=== PATIENT | male | born 1980 | race African-American/Black ===

== ENCOUNTER 2017-02-16 11:36 | Emergency (ER) | payer SELFPAY ==
[~2017-02-16] VITALS: Wt 106.6 kg
[~2017-02-16 11:36] MED LIST: ANAPROX DS550 MG PO; CLEOCIN150 MG PO; KEFLEX500 M1 PO; PAIN RELIEVER650 MG PO; ULTRAM50 MG PO
[2017-02-16] MEDS ORDERED: ANAPROX DS550 MG PO (12:56)
[2017-02-16] MEDS ORDERED: ZANAFLEX4 M1 PO (12:56)
== END 2017-02-16 13:06 | disposition home or self-care (01) ==
LOC: ED 11:36
DX: M94.0 Chondrocostal junction syndrome [Tietze] (principal); R07.89 Other chest pain; F17.200 Nicotine dependence, unspecified, uncomplicated; Z88.6 Allergy status to analgesic agent

== ENCOUNTER 2023-02-28 14:16 | Emergency (ER) | payer OTHER ==
[~2023-02-28] VITALS: Ht 170.1 cm; Wt 68.0 kg
[~2023-02-28 14:16] MED LIST changes: +ZANAFLEX4 M1 PO
[2023-02-28 16:02] LABS: ALKALINE PHOSPHATASE 110 U/L (46-116); BUN 11 mg/dl (9-23); CHLORIDE 104 mmol/L (98-107); LIPASE 29 U/L (12-53); POTASSIUM 3.6 mmol/L (3.4-5.1); SGPT/ALT 12 U/L (10-49); TOTAL PROTEIN 7.4 gm/dL (6.0-8.0)
[2023-02-28 16:06] LABS: ACT PARTIAL THROMBO TIME 28.5 SECONDS (20.0-32.1); INTERNATIONAL NORM RATIO 1.1 (2.0-3.5)
[2023-02-28 16:16] LABS: BILIRUBIN Negative (Negative); BLOOD Negative (Negative); CLARITY Clear (Clear); COLOR Yellow (Yellow); GLUCOSE Negative (Negative); KETONE 1+ (Negative); LEUKO ESTERASE Negative (Negative); NITRITE Negative (Negative); SPECIFIC GRAVITY 1.025 (1.001-1.030)
[2023-02-28 16:26] LABS: PH 8.5 (4.5-8.0)
[2023-02-28 16:31] LABS: BACTERIA TRACE; MUCOUS 1+; WBC 0-2 wbc/hpf (0-5)
[2023-02-28 17:31] LABS: BASO % 0.3 % (0.0-1.0); EOS # 0.1 10*3/uL (0.0-0.4); EOS % 0.9 % (1.0-4.0); HEMATOCRIT 39.1 % (42.0-52.0); LYMPH # 0.6 10*3/uL (1.3-4.4); LYMPH % 5.8 % (27.0-41.0); MEAN CELL VOLUME 88.5 fl (80.0-94.0); MEAN CORPUSCULAR HGB 32.8 pg (27.0-31.0); MEAN PLATELET VOLUME 9.3 fl (9.6-12.3); MONO # 1.4 10*3/uL (0.1-1.0); MONO % 14.4 % (3.0-9.0); NEUT # 7.8 10*3/uL (2.3-7.9); NEUT % 78.1 % (47.0-73.0); PLATELET COUNT AUTOMATED 166 10*3/uL (130-400); RED BLOOD COUNT 4.42 10*6/uL (4.50-5.90); RED CELL DISTRI WIDTH 12.6 % (0-14.5)
[2023-02-28 17:37] LABS: MEAN CORPUSCULAR HGB CONC 37.1 g/dl (33.0-37.0)
[2023-02-28] MEDS ORDERED: Ondansetron4 MG PO (20:21)
== END 2023-02-28 20:20 | disposition home or self-care (01) ==
LOC: ED 14:16
PROVIDERS: Emergency Medicine
DX: A08.4 Viral intestinal infection, unspecified (principal); D57.1 Sickle-cell disease without crisis; Z88.8 Allergy status to other drugs, medicaments and biological substances; Z79.899 Other long term (current) drug therapy

== ENCOUNTER 2023-04-22 13:06 | Emergency (ER) | payer OTHER ==
[~2023-04-22] VITALS: Ht 170.1 cm; Wt 68.0 kg
[~2023-04-22 13:06] MED LIST changes: +Ondansetron4 MG PO
[2023-04-22] MEDS ORDERED: NAPROSYN500 MG PO (13:44)
[2023-04-22] MEDS ORDERED: AMOXICILLIN500 M3 PO (13:44)
== END 2023-04-22 14:07 | disposition home or self-care (01) ==
LOC: ED 13:06
DX: K02.9 Dental caries, unspecified (principal); Z87.442 Personal history of urinary calculi; Z88.8 Allergy status to other drugs, medicaments and biological substances